=== PATIENT | male | born 1965 | race Caucasian/White ===

== ENCOUNTER 2023-06-02 08:48 | Emergency (ER) | payer OTHER, SELFPAY ==
[2023-06-02 08:48] VITALS: BP 190/102; PULSE 77; RESP 25; TEMP 36.7; O2SAT 94; BMI 44.4
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
--- NOTE | 2023-06-02 09:00 | ECG_ITS ---
[facility] Test Date: 2023-06-02 Pat Name: Yobani Hinds Department: Room: Gender: Male Medical Affairs Specialist: : 1965 Requested By: Alexis Johnson Order Number: [id number] Alex MD: Eleazar Zaragoza M.D. Measurements Intervals [place] Rate: 76 P: 33 [place]: 182 QRS: 25 QRSD: 93 T: 34 QT: 351 QTc: 395 Interpretive Statements SINUS RHYTHM MODERATE T-WAVE ABNORMALITY, CONSIDER LATERAL ISCHEMIA [-0.1+ mV T-WAVE IN I/aVL/V5/V6] No previous ECG available for comparison Electronically Signed On 06-02-2023 11:58:19 CDT by Eleazar Zaragoza M.D. [id number]
[2023-06-02 09:14] LABS: Basophils # 0.1 10^3/uL (0.0-0.1); Basophils % 0.7 %; Eosinophils # 0.1 10^3/uL (0.0-0.8); Eosinophils % 1.2 %; Hematocrit 48.2 % (37-53); Lymphocytes # 2.3 10^3/uL (0.8-4.8); Mean Corpuscular HGB Conc 33.8 g/dL (30-55); Mean Corpuscular Hemoglobin 29.6 pg (27-33); Mean Corpuscular Volume 87.6 fl (82-101); Mean Platelet Volume 10.5 fL (7.4-10.4); Monocytes # 0.6 10^3/uL (0.2-0.9); Monocytes % 8.7 %; Neutrophils # 4.16 10^3/uL (1.8-7.7); Neutrophils % 57.1 %; Nucleated Red Blood Cells % 0 %; Platelet Count 245 10^3/cmm (157-399); Red Cell Distribution Width 13.2 % (12.1-15.1); White Blood Count 7.28 10^3/uL (3.29-11.43)
--- NOTE | 2023-06-02 09:22 | PC.PHAR ---
pt states he takes no rx or otc meds-ext shows an albuterol inhaler filled 12/10/22 pt states he doesnt use pt states that was for a cold he had-ext also shows tizanidine 4mg hs prn filled 04/13/23 10d/s pt states he is out of those and not taken for over a month
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
[2023-06-02 09:30] LABS: Alanine Aminotransferase 38 U/L (0-41); Albumin Level 4.4 g/dL (3.5-5.2); Alkaline Phosphatase 90 U/L (40-130); Aspartate Amino Transferase 24 U/L (0-40); Blood Urea Nitrogen 13 mg/dL (6-20); Calcium 9.1 mg/dL (8.5-10.5); Carbon Dioxide 27 mmol/L (22-29); Chloride 103 mmol/L (98-107); Globulin 2.8 g/dL (1.3-4.6); Glomerular Filtration Rate 77.3 mL/min (90-130); Glucose 137 mg/dL (65-115); Osmolality Calculated 292 mOsm/kg (285-295); Sodium 140 mmol/L (136-145); Total Bilirubin 0.2 mg/dL (0.15-1.2); Total Protein 7.2 g/dL (6.6-8.7)
--- NOTE | 2023-06-02 09:37 | XR_ITS ---
WS: [id number] Portable AP upright chest, 06/02/2023 Clinical Data: dyspnea/cough Comparison: None. Findings: No nodules, masses or effusions are seen. The heart is enlarged. The pulmonary vascularity is not increased. No pneumonia or pneumothorax is present. The aortic arch and descending thoracic ao rta show mild tortuosity and calcification. There is an anterior cervical disc fusion. Impression: Cardiomegaly.
[2023-06-02 10:08] LABS: Add Urine Microscopic? NO; Charge for UA Resulting for Rev
[2023-06-02 10:18] LABS: Bilirubin Urine Neg (Negative); Blood Urine Neg (Negative); Glucose Urine UA Norm (Normal); Ketones Urine 1+ (Negative); Leukocyte Esterase Urine Negative (Negative); Nitrate Urine Negative (Negative); Protein Urine Neg (Negative); Specific Gravity, Urine 1.005 (1.005-1.030); Urine Appearance Clear (CLEAR); Urine Color Yellow (Yellow); Urobilinogen Urine 1 mg/dL (Negative); pH Urine 7 (5-7)
== END 2023-06-02 10:58 | disposition home or self-care (01) ==
PROVIDERS: Emergency Provider Family Medicine
DX: M54.2 Cervicalgia (principal); V63.5XXA Driver of heavy transport vehicle injured in collision with car, pick-up truck or van in traffic accident, initial encounter
CPT/HCPCS: 71045; 72125; 80053; 81003; 85025; 93005; 99285